=== PATIENT | male | born 1940 | race Caucasian/White ===

== ENCOUNTER 2016-05-04 12:59 | Observation (INO) | payer OTHER ==
[~2016-05-04] VITALS: Ht 182.9 cm; Wt 85.9 kg
[2016-05-04 13:43] LABS: EOSINOPHIL (%) 1.5 % (0-5); EOSINOPHIL COUNT 0.1 K/uL (0-0.3); HEMATOCRIT 37.2 % (38.0-50.0); IMMATURE GRANULOCYTE (%) 0.2 % (0.0-0.7); IMMATURE GRANULOCYTE COUNT 0.1 K/uL; LYMPHOCYTE COUNT 1.7 K/uL (1.0-2.8); MCH 32.8 PG (29.0-34.0); MCHC 36.3 G/DL (30.0-36.0); MCV 90.3 FL (86-99); MEAN PLAT.VOLUME 9.2 uM^3 (9.0-12.4); MONOCYTE (%) 15.6 % (3-12); MONOCYTE COUNT 0.9 K/uL (0-0.8); NEUTROPHIL (%) 52.8 % (45-76); NEUTROPHIL COUNT 3.1 K/uL (1.8-6.4); PLATELET COUNT 215 K/uL (156-360); RBC DIS.WIDTH-CV 13.3 % (11.8-14.6); RBC DIS.WIDTH-SD 42.9 % (39-53); RED BLOOD COUNT 4.12 M/uL (4.00-5.50); WHITE BLOOD COUNT 5.9 K/uL (4.1-10.2)
[2016-05-04 13:48] LABS: CREATININE 0.9 mg/dL (0.6-1.3); POTASSIUM 4.6 mEq/L (3.7-5.4)
[2016-05-04 13:56] LABS: INTER. NORMALIZED RATIO 1.1; PROTHROMBIN TIME 11.5 (9.2-11.2); PTT 29.7 (25-32)
[2016-05-04 13:58] LABS: CHLORIDE 107 mEq/L (99-109); POTASSIUM 4.5 mEq/L (3.7-5.4); SODIUM 138 mEq/L (136-147)
[2016-05-04 14:00] LABS: GLUCOSE 113 mg/dL (70-99)
[2016-05-04 14:01] LABS: ANION GAP 7 MEQ/L (2-14)
[2016-05-04 14:02] LABS: TOTAL BILIRUBIN 0.6 mg/dL (0.0-1.0)
[2016-05-04 14:04] LABS: ALKALINE PHOSPHATASE 80 IU/L (3-129); GFR ESTIMATE (CALCULATED) > 59 mL/min/
[2016-05-04 14:05] LABS: TROP-I INTERPRETATION NEGATIVE; TROPONIN-I < 0.01 ng/mL (0.0-0.30); UREA NITROGEN (BUN) 16 mg/dL (9-23)
[2016-05-04 14:12] LABS: Estimated Average Glucose 111 mg/dL (70-123); HEMOGLOBIN A1c (GLYCOHEMOGLOB) 5.5 % HGB (Below 5.7)
[2016-05-04 14:31] LABS: HDL CHOLESTEROL 24 MG/DL (Desirable>=40); LDL CHOLESTEROL 50 mg/dL (Desirable<100); NON-HDL CHOLESTEROL 104 mg/dL (Desirable<160); TOTAL CHOLESTEROL 128 mg/dL (Desirable<200); TRIGLYCERIDES 271 MG/DL (Normal: <150)
[2016-05-04] MEDS ORDERED: PANTOPRAZOLE SO40 MG PO (15:04)
[2016-05-04] MEDS ORDERED: TERAZOSIN HCL10 MG PO (15:04)
[2016-05-04] MEDS ORDERED: CARDIZEM90 MG PO (15:04)
[2016-05-04] MEDS ORDERED: XARELTO20 MG PO (15:05)
[2016-05-04] MEDS ORDERED: OMEGA 3 500 SO1 EACH PO (15:06)
[2016-05-04] MEDS ORDERED: RED YEAST RICE600 MG PO (15:06)
[2016-05-04] MEDS ORDERED: FLAX OIL1000 MG PO (15:06)
[2016-05-04] MEDS ORDERED: METAMUCIL0.4 GM PO (15:06)
[2016-05-04] MEDS ORDERED: PRESERVISION A1 EAC2 PO (15:07)
[2016-05-04] MEDS ORDERED: METOPROLOL TART50 MG PO (15:08)
[2016-05-04 15:14] LABS: ADD MIUA? NO; BILIRUBIN NEGATIVE; BLOOD NEGATIVE; COLOR YELLOW ((YELLOW)); GLUCOSE (STRIP) NEGATIVE; KETONES NEGATIVE; LEUKOCYTES NEGATIVE; NITRITE NEGATIVE; PROTEIN (STRIP) 30; SPECIFIC GRAVITY 1.021 (1.000-1.030); UCUL ADDED? NO; UROBILINOGEN 0.2 MG/DL (0.2-1.0)
[2016-05-04 17:22] VITALS: BP 165/87
[2016-05-04 20:00] VITALS: BP 151/86
[2016-05-05 00:40] VITALS: BP 166/65
[2016-05-05 04:31] VITALS: BP 129/85
[2016-05-05 07:43] VITALS: BP 174/95
[2016-05-05 12:17] VITALS: BP 157/98
[2016-05-05] MEDS ORDERED: PRAVACHOL40 MG PO (13:00)
[2016-05-05] MEDS ORDERED: ELIQUIS5 MG PO (13:05)
== END 2016-05-05 15:26 | disposition home or self-care (01) ==
LOC: EME → EDBD 12:59 → EME 12:59 → EDOF 15:55 → 5WEST 17:22
PROVIDERS: Emergency Medicine
DX: G45.9 Transient cerebral ischemic attack, unspecified (principal); K92.2 Gastrointestinal hemorrhage, unspecified; I10 Essential (primary) hypertension; E78.5 Hyperlipidemia, unspecified; Z95.0 Presence of cardiac pacemaker; I48.91 Unspecified atrial fibrillation; Z79.01 Long term (current) use of anticoagulants; Z82.49 Family history of ischemic heart disease and other diseases of the circulatory system
CPT/HCPCS: 70450; 70496; 70498; 71020; 80047; 80053; 80061; 81003; 82272; 83036; 84484; 85025; 85610; 85730; 93005; 94660; 99281; 99285; G0378